=== PATIENT | female | born 2000 | race African-American/Black ===

== ENCOUNTER 2020-10-12 08:30 | Outpatient (REF) | payer MEDICAID, SELFPAY | END 2020-10-12 08:31 | disposition home or self-care (01) | LOC: HO.LAB 08:30 | PROVIDERS: Visit Provider Internal Medicine | DX: Z20.828 Contact with and (suspected) exposure to other viral communicable diseases (principal) | CPT/HCPCS: C9803; U0003 ==

== ENCOUNTER 2021-07-04 08:10 | Outpatient (REF) | payer BC, MEDICAID, SELFPAY | END 2021-07-04 08:11 | disposition home or self-care (01) | LOC: HO.LAB 08:10 | PROVIDERS: Visit Provider Internal Medicine | DX: Z20.822 Contact with and (suspected) exposure to COVID-19 (principal) | CPT/HCPCS: C9803; U0003; U0005 ==

== ENCOUNTER 2021-07-23 09:03 | Outpatient (REF) | payer MEDICAID, SELFPAY ==
[2021-07-23 10:01] LABS: COVID-19 Test Negative (Negative)
== END 2021-07-23 09:04 | disposition home or self-care (01) ==
LOC: HO.LAB 09:03
PROVIDERS: Visit Provider Internal Medicine
DX: Z20.822 Contact with and (suspected) exposure to COVID-19 (principal)
CPT/HCPCS: 36415; 87635; C9803

== ENCOUNTER 2023-06-05 19:39 | Emergency (ER) | payer OTHER, SELFPAY ==
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
[2023-06-05 20:02] VITALS: BP 117/79; PULSE 73; RESP 16; TEMP 37.4; O2SAT 100; BMI 22.3
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
[2023-06-05 20:18] LABS: UPreg QC Valid YES; Urine Pregnancy NEGATIVE (NEGATIVE)
--- OUTSIDE RECORDS SUMMARY | 2023-06-05 20:29 | XMS_ITS | Continuity of Care Document ---
Author Name Unknown Organization [facility] Address [address] [place] [address]- Care Team Providers Care Color Control Operator Name Role Phone Branch Anjali SARAVIA Primary Care Physician [facility]): 07/11/21 - 08/10/21 [facility] [address] [place] [address]- Allergies, Adverse Reactions, Alerts Substance Reaction Severity Status Strawberries Active Apples Active Oranges Active Immunizations Given and Recorded Vaccine Date Status Refusal Reason Hepatitis A Pediatric Vaccine 11/03/16 Given Meningococcal Conjugate Vaccine 11/03/16 Given Meningococcal Conjugate Vaccine 10/28/11 Given influenza virus vaccine, inactivated 11/03/16 Give n influenza virus vaccine, inactivated 09/24/15 Give n influenza virus vaccine, inactivated 1 08/18/12 Gi flora influenza virus vaccine, live 07/12/14 Given influenza virus vaccine, live 2 08/02/13 Given influenza virus vaccine, live 10/28/11 Given Human Papillomavirus Vaccine 04/29/12 Given Human Papillomavirus Vaccine 3 12/31/11 Given Human Papillomavirus Vaccine 10/28/11 Given tetanus/diphtheria/pertussis, acel(Tdap) 10/28/11 Given Varicella Virus Vaccine 10/28/11 Given Varicella Virus Vaccine 10/21/01 Given Influenza Live (intranasal) (oldterm) 07/08/10 Giv en Measles/Mumps/Rubella Virus Vaccine 03/20/05 Given Measles/Mumps/Rubella Virus Vaccine 10/21/01 Given Poliovirus Vaccine, Inactivated 03/20/05 Given Poliovirus Vaccine, Inactivated 07/19/01 Given Poliovirus Vaccine, Inactivated 02/14/01 Given Poliovirus Vaccine, Inactivated 00 Given Diphth/Tet/Pertussis, Acel (oldterm) 03/20/05 Give n Diphth/Tet/Pertussis, Acel (oldterm) 02/09/02 Give n Diphth/Tet/Pertussis, Acel (oldterm) 04/13/01 Give n Diphth/Tet/Pertussis, Acel (oldterm) 02/14/01 Give n Diphth/Tet/Pertussis, Acel (oldterm) 00 Give n Haemophilus B Conj Vaccine (oldterm) 02/09/02 Give n Haemophilus B Conj Vaccine (oldterm) 04/13/01 Give n Haemophilus B Conj Vaccine (oldterm) 02/14/01 Give n Haemophilus B Conj Vaccine (oldterm) 00 Give n Pneumococcal Conjugate (PCV7) (oldterm) 04/13/01 G iven Pneumococcal Conjugate (PCV7) (oldterm) 02/14/01 G iven Pneumococcal Conjugate (PCV7) (oldterm) 00 G iven Hepatitis B Vaccine (old term) 04/13/01 Given Hepatitis B Vaccine (old term) 00 Given Hepatitis B Vaccine (old term) 00 Given 1Admin Note: vis given 04.18.12 2Admin Note: exact day not known 3Admin Note: VIS GIVEN Medications EpiPen 2-Ronnie 0.3 mg injectable kit = 0.3 mg, Intramuscular, Once, PRN anaphylaxis, Inject as instructed for severe allergic reaction and then call 911 to go to emergency room., # 1 pack/packet, 0 Refills, Soft Stop, 06/04/21 9:46:00 EDT, [facility]., 160.2, cm, 06/04/21... Start Date: 06/04/21 Status: Ordered Sprintec 0.25 mg-35 mcg oral tablet 1 tablet, By Mouth, Daily, # 84 tablet, 4 Refills, Maintenance, 07/24/21 12:57:00 EDT, Tablet, [facility], Partial fill upon patient request if the prescription is for a schedule II opioid drug., 1 tablet By Mouth Daily, 160, cm, 07/08... Start Date: 07/24/21 Status: Ordered Problem List Condition Effective Dates Status Health Status Inform ant Anxiety(Confirmed) Active Seasonal allergy (rhinitis & conjunctivitis)(Confirmed) 02/24/11 Active Social History Social History Type Response Smoking Status Never smoker; Tobacc o user in household: No entered on: 12/02/16 Sex
--- OUTSIDE RECORDS SUMMARY | 2023-06-05 20:29 | XMS_ITS | Continuity of Care Document ---
Author Name Unknown Organization [facility] Address [address] [place] [address]- Care Team Providers Care Electronic Specialist Name Role Phone Branch Anjali SARAVIA Primary Care Physician [facility] 01/19/20 - 01/29/20 [facility] [address] [place] [address]- Attending Physician: Renate Steven Admitting Physician: AdmRenate rodriguez Referring Physician: AdmtrRenate Allergies, Adverse Reactions, Alerts Substance Reaction Severity [...] # 1 pack/packet, 0 Refills, Soft Stop, 06/17/17 11:48:42 Start Date: 06/17/17 Status: Ordered ferrous sulfate 325 mg oral enteric coated tablet 325 mg, 1, tablet, By Mouth, Daily, may take with food to minimize abdominal discomfort, take with orange juice, # 30 tablet, Refills 1, Tot. Refills 1, Maintenance, 11/06/16 11:12:03, Route to Pharmacy Electronically, [id number]... Start Date: 11/06/16 Stop Date: 01/05/17 Status: Ordered Problem List Condition Effective Dates Status Health Status Inform ant Anxiety(Confirmed) Active Seasonal allergy (rhinitis & conjunctivitis)(Confirmed) 02/24/11 Active Social History Social History Type Response Smoking Status Never smoker; Tobacc o user in household: No entered on: 12/02/16 Sex
--- OUTSIDE RECORDS SUMMARY | 2023-06-05 20:29 | XMS_ITS | Continuity of Care Document ---
Author Name Unknown Organization [facility] Address [address] [place] [address]- Care Team Providers Care Waste Hand Name Role Phone Branch Anjali SARAVIA Primary Care Physician [facility] Date(s): 05/19/21 - 06/18/21 [facility] [address] [place] [id number]- Allergies, Adverse Reactions, Alerts Substance Reaction Severity [...] 0 Refills, Soft Stop, 06/04/21 9:46:00 EDT, [facility], 160.2, cm, 06/04/21... Start Date: 06/04/21 Status: Ordered Sprintec 0.25 mg-35 mcg oral tablet 1 tablet, By Mouth, Daily, # 28 tablet, 2 Refills, Maintenance, 06/04/21 9:49:00 EDT, Tablet, [facility], Partial fill upon patient request if the prescription is for a schedule II opioid drug., 1 tablet By Mouth Daily, 160.2, cm, 05/18... Start Date: 06/04/21 Status: Ordered Problem List Condition Effective Dates Status Health Status Inform ant Anxiety(Confirmed) Active Seasonal allergy (rhinitis & conjunctivitis)(Confirmed) 02/24/11 Active Social History Social History Type Response Smoking Status Never smoker; Tobacc o user in household: No entered on: 12/02/16 Sex
--- OUTSIDE RECORDS SUMMARY | 2023-06-05 20:29 | XMS_ITS | Continuity of Care Document ---
Author Name Unknown Organization [facility] Address [address] [place] [address]- Care Team Providers Care Crisis Counselor Name Role Phone Anjali Long MD Primary Care Physician [facility]): 05/25/21 - 06/01/21 [facility] [address] [place], [place] [address] Attending Physician: Anival Jaimes DO Referring Physician: Anjali Long MD Allergies, Adverse Reactions, Alerts Substance Reaction Severity [...] Maintenance, 11/06/16 11:12:03, Route to Pharmacy Electronically, [id number]... Start Date: 11/06/16 Stop Date: 01/05/17 Status: Ordered metroNIDAZOLE 0.75% topical gel 1 application, Vaginally, Daily at bedtime, # 45 Gm, 0 Refills, Maintenance, 05/27/21 19:47:00 EDT,[id number], Partial fill upon patient request if the prescription is for a schedule II opioid drug., 1 application Vaginally Daily at... Start Date: 05/27/21 Stop Date: 06/01/21 Status: Ordered Problem List Condition Effective Dates Status Health Status Inform ant Anxiety(Confirmed) Active Seasonal allergy (rhinitis & conjunctivitis)(Confirmed) 02/24/11 Active Vital Signs Most recent to oldest [Reference Range]: 1 Height 159.4 cm (05/25/21 10:52 AM) Oxygen Saturation [94-100 %] 100 % (05/25/21 10:52 AM) Pulse Rate [55-90 bpm] 78 bpm (05/25/21 10:52 AM) Blood Pressure [90-138/55-84 mm Hg] 118/ 58mm Hg (05/25/21 10:52 AM) Temperature [96.8-100.4 DegF] 98.6 DegF (05/25/21 10:52 AM) Mode of Delivery (Oxygen) Room air (05/25/21 10:52 AM) Blood pressure sites Arm, right (05/25/21 10:52 AM) Temperature Route Temporal (05/25/21 10:52 AM) Dry Weight 56.0 kg (05/25/21 10:52 AM) Dry Weight Obtained Via Standing scale (05/25/21 10:52 AM) Social History Social History Type Response Smoking Status Never smoker; Tobacc o user in household: No entered on: 12/02/16 Sex
--- OUTSIDE RECORDS SUMMARY | 2023-06-05 20:29 | XMS_ITS | Continuity of Care Document ---
Author Name Unknown Organization [facility] Address [address] [place] [address]- Care Team Providers Care Storeroom Keeper Name Role Phone Branch Anjali SARAVIA Primary Care Physician [facility]): 08/06/21 - 09/05/21 [facility] [address] [place] [id number]- Allergies, Adverse Reactions, Alerts Substance Reaction Severity [...] 0 Refills, Soft Stop, 06/04/21 9:46:00 EDT, [facility]., 160.2, cm, 06/04/21... Start Date: 06/04/21 Status: Ordered Sprintec 0.25 mg-35 mcg oral tablet 1 tablet, By Mouth, Daily, # 84 tablet, 4 Refills, Maintenance, 07/24/21 12:57:00 EDT, Tablet, [facility], Partial fill upon patient request if [...]
--- OUTSIDE RECORDS SUMMARY | 2023-06-05 20:29 | XMS_ITS | Continuity of Care Document ---
Author Name Unknown Organization [facility] Address [address] [place] [address]- Care Team Providers Care Contracting Executive Name Role Phone Branch Anjali SARAVIA Primary Care Physician [facility]s): 07/08/21 - 08/07/21 [facility] [address] [place] [address]- Attending Physician: AdmRenate rodriguez Admitting Physician: Admtr, Renate Referring Physician: Admtr, Ar8 Allergies, Adverse Reactions, Alerts Substance Reaction Severity [...] 0 Refills, Soft Stop, 06/04/21 9:46:00 EDT, [facility]., 160.2, cm, 06/04/21... Start Date: 06/04/21 Status: Ordered Sprintec 0.25 mg-35 mcg oral tablet 1 tablet, By Mouth, Daily, # 84 tablet, 4 Refills, Maintenance, 07/24/21 12:57:00 EDT, Tablet, [facility], Partial fill upon patient request if [...]
--- OUTSIDE RECORDS SUMMARY | 2023-06-05 20:30 | XMS_ITS | Continuity of Care Document ---
Author Name Unknown Organization [facility] Address [address] [place] [address]- Care Team Providers Care Roll Mill Operator Name Role Phone Branch Anjali SARAVIA Primary Care Physician [facility]s): 05/25/21 - 06/24/21 [facility] [address] [place], [place] [address] Attending Physician: Renate Steven Admitting Physician: Renate Steven Referring Physician: Admtr, Renate Allergies, Adverse Reactions, Alerts Substance Reaction Severity [...] 0 Refills, Soft Stop, 06/04/21 9:46:00 EDT, [facility], 160.2, cm, 06/04/21... Start Date: 06/04/21 Status: Ordered Sprintec 0.25 mg-35 mcg oral tablet 1 tablet, By Mouth, Daily, # 28 tablet, 2 Refills, Maintenance, 06/04/21 9:49:00 EDT, Tablet, [facility], Partial fill upon patient request if the prescription is for a schedule II opioid drug., 1 tablet By Mouth Daily, 160.2, cm, 05/18... Start Date: 06/04/21 Status: Ordered Problem List Condition Effective Dates Status Health Status Inform ant Anxiety(Confirmed) Active Seasonal allergy (rhinitis & conjunctivitis)(Confirmed) 5/10/11 Active Social History Social History Type Response Smoking Status Never smoker; Tobacc o user in household: No entered on: 12/02/16 Sex
--- OUTSIDE RECORDS SUMMARY | 2023-06-05 20:30 | XMS_ITS | Continuity of Care Document ---
Author Name Unknown Organization [facility] Address [address] [place] [address]- Care Team Providers Care Director Safety Council Name Role Phone Branch Anjali SARAVIA Primary Care Physician [facility]s): 05/19/21 - 07/12/21 [facility] [address] [place] [address]- Attending Physician: Campos Hemphill MD Admitting Physician: Campos Hemphill MD Allergies, Adverse Reactions, Alerts Substance Reaction [...] 0 Refills, Soft Stop, 06/04/21 9:46:00 EDT, [facility], 160.2, cm, 06/04/21... Start Date: 06/04/21 Status: Ordered Sprintec 0.25 mg-35 mcg oral tablet 1 tablet, By Mouth, Daily, # 28 tablet, 2 Refills, Maintenance, 06/04/21 9:49:00 EDT, Tablet, [facility], Partial fill upon patient request if [...]
--- OUTSIDE RECORDS SUMMARY | 2023-06-05 20:30 | XMS_ITS | Continuity of Care Document ---
Author Name Unknown Organization [facility] Address [address] [place] [address]- Care Team Providers Care System Administrator Name Role Phone Branch Anjali SARAVIA Primary Care Physician [facility]counter [facility](s): 11/16/19 - 02/18/20 [facility] [address] [place] [id number]- Attending Physician: Not on Staff, Attending MD Allergies, Adverse Reactions, Alerts Substance Reaction [...] Maintenance, 11/06/16 11:12:03, Route to Pharmacy Electronically, [id number]... Start Date: 11/06/16 Stop Date: 01/05/17 Status: Ordered Problem List Condition Effective Dates Status Health Status Inform ant Anxiety(Confirmed) Active Seasonal allergy (rhinitis & conjunctivitis)(Confirmed) 02/24/11 Active Social History Social History Type Response Smoking Status Never smoker; Tobacc o user in household: No entered on: 12/02/16 Sex
== END 2023-06-05 22:45 | disposition home or self-care (01) ==
PROVIDERS: Nurse Practitioner Family; Emergency Provider Internal Medicine
DX: S39.012A Strain of muscle, fascia and tendon of lower back, initial encounter (principal); V43.52XA Car driver injured in collision with other type car in traffic accident, initial encounter; R51.9 Headache, unspecified; Y93.89 Activity, other specified; Y92.414 Local residential or business street as the place of occurrence of the external cause; Y99.9 Unspecified external cause status
CPT/HCPCS: 73502; 81025; 99282; 99283

== ENCOUNTER 2023-06-08 08:14 | Emergency (ER) | payer OTHER, SELFPAY ==
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
[2023-06-08 08:23] VITALS: BP 140/91; PULSE 70; RESP 19; TEMP 36.6; O2SAT 99; BMI 21.9
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
[2023-06-08 10:48] LABS: Appearance Urine Clear; Color Urine Yellow; Glucose Urine UA Negative (Negative); Leukocyte Esterase Urine Small (1+) (Negative); Nitrite Urine Positive (Negative); PH 6.5 (5.0-9.0); UMIC TRIGGER UACC YES; Urine Blood Trace (Negative); Urine Ketones Trace mg/dL (Negative); Urine Protein Trace mg/dL (Neg-Trace)
[2023-06-08 10:53] LABS: Bacteria Urine 4+ (None Seen); Hyaline Casts Urine 0-2 /LPF (0-2); RBC Urine 0-2 /HPF (0-2); UACC Culture Trigger YES; WBC Urine 21-50 /HPF (0-5)
== END 2023-06-08 11:55 | disposition home or self-care (01) ==
PROVIDERS: Registered Nurse Emergency; Emergency Provider Emergency Medicine
DX: S39.012D Strain of muscle, fascia and tendon of lower back, subsequent encounter (principal); V49.9XXD Car occupant (driver) (passenger) injured in unspecified traffic accident, subsequent encounter; N39.0 Urinary tract infection, site not specified; B96.20 Unspecified Escherichia coli [E. coli] as the cause of diseases classified elsewhere
CPT/HCPCS: 71046; 72072; 81001; 87086; 87088; 87186; 99283; 99284

== ENCOUNTER 2023-09-17 02:23 | Emergency (ER) | payer OTHER, SELFPAY ==
[2023-09-17 02:39] VITALS: BP 127/86; BP 129/95; PULSE 95; PULSE 99; RESP 20; TEMP 36.9; O2SAT 20; O2SAT 96; BMI 23.3
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
[2023-09-17] MEDS: Acetaminophen 325 MG TABLET 975 MG PO (04:29)
[2023-09-17] MEDS: Ibuprofen 400 MG TABLET PO (04:30)
== END 2023-09-17 04:35 | disposition home or self-care (01) ==
PROVIDERS: Emergency Provider Student in an Organized Health Care Education/Training Program
DX: S00.03XA Contusion of scalp, initial encounter (principal); V43.52XA Car driver injured in collision with other type car in traffic accident, initial encounter; Y93.9 Activity, unspecified; Y92.410 Unspecified street and highway as the place of occurrence of the external cause; Y99.9 Unspecified external cause status
CPT/HCPCS: 99283; 99284